=== PATIENT | female | born 1995 | race African-American/Black ===

== ENCOUNTER 2019-01-20 22:24 | Inpatient (IN) | payer OTHER ==
[2019-01-20] MEDS: LACTATED RINGER'S 1,000 ML IV (23:00)
[2019-01-20] MEDS ORDERED: METHYLERGONOVINE 0.2 MG INJ IM (23:00)
[2019-01-20] MEDS ORDERED: LIDOCAINE 1% (MPF) 30 ML INJ INJ (23:00)
[2019-01-20] MEDS ORDERED: BUTORPHANOL 2 MG INJ IV (23:00)
[2019-01-20] MEDS ORDERED: MISOPROSTOL 200 MCG TAB PR (23:00)
[2019-01-20] MEDS ORDERED: OXYTOCIN 30 UNITS/LR 500 ML IV (23:00)
[2019-01-20] MEDS ORDERED: CARBOPROST 250 MCG INJ IM (23:00)
[2019-01-20] MEDS: AMPICILLIN 2 GM/NS (PMX) 100 ML IV (23:04)
[2019-01-20 23:06] LABS: ADD UMIC YES; UR ASCORBIC ACID 40 mg/dL (NEGATIVE); UR BILIRUBIN (Dip) NEGATIVE (NEGATIVE); UR BLOOD (Dip) NEGATIVE (NEGATIVE); UR CLARITY SLIGHTLY CLOUDY (CLEAR); UR COLOR YELLOW (YELLOW); UR GLUCOSE (Dip) NEGATIVE (NEGATIVE); UR KETONES (Dip) NEGATIVE (NEGATIVE); UR LEUKOCYTE ESTERASE (Dip) 2+ Leu/ul (NEGATIVE); UR MUCUS FEW /HPF (NONE SEEN); UR NITRITE (Dip) NEGATIVE (NEGATIVE); UR RBC 2 /HPF (0-5); UR SPECIFIC GRAVITY (Dip) 1.015 (1.003-1.030); UR SQUAMOUS EPITHELIAL CELL FEW /HPF (FEW); UR TOTAL PROTEIN (Dip) NEGATIVE (NEGATIVE); UR UROBILINOGEN (Dip) 1+ mg/dL (NEGATIVE); UR WBC 16 /HPF (0-5)
[2019-01-20 23:24] LABS: AMPHETAMINE/METHAMPHETAMINE Negative (NEGATIVE); BARBITURATES Negative (NEGATIVE); BENZODIAZEPINES Negative (NEGATIVE); CANNABINOIDS Positive (NEGATIVE); COCAINE Negative (NEGATIVE); OPIATES Negative (NEGATIVE)
[2019-01-20 23:35] LABS: ADD MAN DIFF? NO
[2019-01-20 23:38] LABS: WHITE BLOOD COUNT 8.8 10^3/ul (4.8-10.8)
[2019-01-20 23:38] LABS: BASOPHILS % 0.3 % (0.0-2.0); EOSINOPHILS # 0.1 10^3/ul (0.0-0.5); HEMATOCRIT 26.4 % (37.0-47.0); HEMOGLOBIN 8.1 g/dl (12.0-16.0); LYMPHOCYTES # 2.3 10^3/ul (0.8-2.9); LYMPHOCYTES % 26.4 % (15.0-51.0); MEAN CORPUSCULAR HEMOGLOBIN 26.5 pg (29.0-33.0); MEAN CORPUSCULAR HGB CONC 30.7 g/dl (32.0-37.0); MEAN CORPUSCULAR VOLUME 86.3 fl (82.0-101.0); MEAN PLATELET VOLUME 11.4 fl (7.4-10.4); MONOCYTE # 0.8 10^3/ul (0.3-0.9); MONOCYTES % 9.2 % (0.0-11.0); NEUTROPHIL # 5.4 10^3/ul (1.6-7.5); NEUTROPHILS % 60.9 % (39.0-77.0); NUCLEATED RED BLOOD CELLS% 0.2 /100WBC (0.0-0.0); PLATELET COUNT 193 10^3/UL (140-415); RED BLOOD COUNT 3.06 10^6/ul (4.20-5.40); RED CELL DISTRIBUTION WIDTH 15.2 % (11.5-14.5)
[2019-01-20 23:57] LABS: INR 0.97
[2019-01-20 23:58] LABS: PARTIAL THROMBOPLASTIN TIME 24.7 Sec (23.0-35.0)
[2019-01-21 00:30] LABS: HEPATITIS B SURFACE ANTIGEN NEGATIVE (NEGATIVE)
[2019-01-21 00:41] LABS: HIV 1&2 ANTIBODY NEGATIVE (NEGATIVE)
[2019-01-21] MEDS: MINERAL OIL LIGHT 10 ML VIAL TOP (01:32)
[2019-01-21] MEDS: IBUPROFEN 600 MG TAB PO ×6 (01:40→23:31)
[2019-01-21] MEDS: OXYTOCIN 30 UNITS/LR 500 ML IV ×3 (02:12→04:34)
[2019-01-21] MEDS ORDERED: ZOLPIDEM 5 MG TAB PO (02:30)
[2019-01-21] MEDS ORDERED: LANOLIN HPA 1 PKT TOP (02:30)
[2019-01-21] MEDS ORDERED: OXYTOCIN 30 UNITS/LR 500 ML IV (02:30)
[2019-01-21] MEDS ORDERED: ACETAMINOPHEN 325 MG TAB PO (02:30)
[2019-01-21] MEDS ORDERED: NACL 0.9% 3 ML SYG IV (02:30)
[2019-01-21] MEDS ORDERED: CARBOPROST 250 MCG INJ IM (02:30)
[2019-01-21] MEDS ORDERED: ONDANSETRON 4 MG INJ IV (02:30)
[2019-01-21] MEDS ORDERED: DIPHENHYDRAMINE 25 MG CAP PO (02:30)
[2019-01-21] MEDS ORDERED: MISOPROSTOL 200 MCG TAB PR (02:30)
[2019-01-21] MEDS ORDERED: AMPICILLIN 1 GM/NS (PMX) 50 ML IV (03:00)
[2019-01-21] MEDS: HYDROCODONE/APAP (5/325) TAB PO ×2 (04:03→16:08)
[2019-01-21] MEDS: SENNA/DOCUSATE NA (8.6MG/50MG) TAB PO ×3 (04:10→21:00)
[2019-01-21] MEDS: WITCH HAZEL/GLYCERIN PAD PR (06:03)
[2019-01-21] MEDS: LACTATED RINGER'S 1,000 ML IV ×2 (06:41→14:41)
[2019-01-21 22:19] LABS: RAPID PLASMA REAGIN NONREACTIVE (NR)
[2019-01-22] MEDS: IBUPROFEN 600 MG TAB PO ×2 (04:29→10:20)
[2019-01-22] MEDS: SENNA/DOCUSATE NA (8.6MG/50MG) TAB PO (09:00)
[2019-01-22 09:46] LABS: RUBELLA ANTIBODY - IGM <20.00 AU/mL
[2019-01-22 11:23] LABS: RUBELLA ANTIBODY - IGG 1.54 index
[2019-01-23] MEDS ORDERED: DIPHTH/TET/ACEL PERTUSS (ADULT) 0.5 ML VIAL IM* (09:00)
[2019-01-23] MEDS ORDERED: VARICELLA VACCINE LIVE/PF 1,350 UNIT/0.5 ML ML SC* (09:00)
[2019-01-23] MEDS ORDERED: MEASLES,MUMPS,RUBELLA VACCINE INJ SC* (09:00)
== END 2019-01-22 13:10 | disposition home or self-care (01) | DRG 807 ==
LOC: OBT 22:24 → PP1 01-21 03:00 → L-D 22:28 → OBT 22:25 → L-D 22:25
PROC: 10E0XZZ Delivery of Products of Conception, External Approach (ICD-10-PCS; principal; 2019-01-21)
PROC: 10907ZC Drainage of Amniotic Fluid, Therapeutic from Products of Conception, Via Natural or Artificial Opening (ICD-10-PCS; 2019-01-21)
PROC: 0HQ9XZZ Repair Perineum Skin, External Approach (ICD-10-PCS; 2019-01-21)
DX: O62.3 Precipitate labor (principal); O99.334 Smoking (tobacco) complicating childbirth; F17.200 Nicotine dependence, unspecified, uncomplicated; O70.0 First degree perineal laceration during delivery; Z37.0 Single live birth; Z3A.38 38 weeks gestation of pregnancy
CPT/HCPCS: 80307; 81001; 85025; 85610; 85730; 86592; 86703; 86762; 86850; 86900; 86901; 87081; 87340